=== PATIENT | female | born 1945 | race Caucasian/White ===

== ENCOUNTER 2022-03-31 10:24 | Outpatient (CLI) | payer MEDICARE, SELFPAY ==
[2022-03-31 10:38] VITALS: BP 102/46; PULSE 80; RESP 20; TEMP 36.7; O2SAT 98
[2022-03-31] MEDS: Dexamethasone Sod. Phos./Pres-Free 10 MG/ML VIAL IJ (11:15)
[2022-03-31] MEDS: Omnipaque 240 MG/ML 50 ML BTL IJ (11:15)
--- NOTE | 2022-03-31 11:15 | DI.RAD_ITS ---
Exam(s) XR PAIN CLINIC CERVICAL SP 2V EXAM: XR PAIN CLINIC CERVICAL SP 2V CLINICAL HISTORY: Dx: Cervical Radiculopathy TECHNIQUE: 2D and realtime digital imaging was performed. COMPARISON: No exams were available for comparison FINDINGS: C-arm fluoroscopy was utilized by Dr. Nguyen during reported cervical epidural steroid injection. Hard copy shows needle placement at what appears to be the C7-T1 level. IMPRESSION: RADIATION DOSE DELIVERED: jaime Salmeron=2.56 mGy
[2022-03-31 11:16] VITALS: BP 128/66; PULSE 62; RESP 17; O2SAT 98
--- NOTE | 2022-03-31 11:53 | PDOC.PAIN ---
Date of service: 03/31/22 Time of Service: 11:55 Pain Clinic Procedure Note Procedure Note Procedure Note: Cervical Epidural Steroid Injection Melissa Sargent has been referred to the [facility] for interlaminar cervical epidural steroid injection. COMMENTS: She was previously evaluated in our office. Pre-procedure pain VAS was 7/10. Dx: Cervical radiculopathy Patient was interviewed and the medical record reviewed. There were no medical, pharmacologic, radiographic or other structural contraindications to attempting fluoroscopically guided epidural steroid injection. Risks and expected side effects as well as potential benefit of the procedure were reviewed and voiced concerns addressed. The printed consent form was signed and witnessed. Standard time-out procedure was performed. The patient was placed in the prone position on the fluoroscopy table and automated blood pressure cuff and pulse oximeter applied. The skin entry point for entering the epidural space by a midline C7-T1 interlaminar approach was identified under fluoroscopy and marked. Following thorough Chlorhexadine preparation of the skin and draping and 1% lidocaine infiltration of the skin entry point and subcutaneous tissues, an 18 gauge Tuohy needle was placed under fluoroscopic guidance and with loss of resistance technique into the epidural space. Upon needle placement and loss of resistance there were no paresthesiae or return of blood or CSF through the needle. 1ml of Omnipaque 240 were injected with clear epidural spread in the A/P, oblique views. 15mg of preservative-free Dexamethasone with 1ml sterile normal saline were injected through the needle with no unusual discomfort expressed. The needle was removed without difficulty. A bandage was placed. Vital signs were stable throughout the procedure and were as recorded in the docflowsheet by the nursing staff. If given, dosages of intravenous drugs for anxiolysis and analgesia were documented in MAR. Follow up plans and appointments were discussed. Post procedure instruction was given as documented in nursing documentation and having met discharge criteria and was discharged from the [facility]. This procedure can be completed up to 3 times per 12 months if it is helpful. COMMENTS: Post-procedure pain VAS was 5/10 Matt Nguyen DO, MPH [facility] Management [facility] CC: ALYSSA TRAN
== END 2022-03-31 10:25 | disposition home or self-care (01) ==
LOC: PC 10:25
PROVIDERS: PCP Family Medicine; Visit Provider Preventive Medicine Occupational Medicine
DX: M54.12 Radiculopathy, cervical region (principal)
CPT/HCPCS: 62321; 72040; Q9967

== ENCOUNTER 2023-04-05 07:41 | Outpatient (CLI) | payer MEDICARE, SELFPAY ==
[2023-04-05 07:53] VITALS: BP 134/85; PULSE 82; RESP 20; TEMP 36.7; O2SAT 93
--- NOTE | 2023-04-05 08:26 | DI.RAD_ITS ---
Exam(s) XR PAIN CLINIC CERVICAL SP 2V EXAM: XR PAIN CLINIC CERVICAL SP 2V CLINICAL HISTORY: Dx: Cervical Radiculopathy TECHNIQUE: 2D and realtime digital imaging was performed. Radiologist not present. CONTRAST MATERIAL: None. COMPARISON: No exams were available for comparison FINDINGS: Fluoroscopy was provided for pain management therapy. Please refer to procedure report or details. Radiation Exposure Index: Ka,r=3.82 mGy IMPRESSION: As above. RADIATION DOSE DELIVERED:
[2023-04-05 08:31] VITALS: BP 137/75; PULSE 77; RESP 17; O2SAT 98
[2023-04-05] MEDS: Omnipaque 240 MG/ML 50 ML BTL IJ (08:32)
[2023-04-05] MEDS: Dexamethasone Sod. Phos./Pres-Free 10 MG/ML VIAL IJ (08:32)
--- NOTE | 2023-04-05 08:33 | PDOC.PAIN_ITS ---
Date of service: 04/05/23 Time of Service: 08:33 Pain Managment Procedure Note Procedure Note Procedure Note: Procedure Note Cervical Interlaminar Epidural Steroid Injection Date of Service: April 05, 2023 Patient:? Melissa Sargent? Provider:? Augusto Nguyen DO, MPH Melissa has been referred to the [facility] for cervical epidural steroid injection.? Pre-operative diagnosis: Cervical Radiculopathy Post-operative diagnosis: Same Pre-procedure pain: VAS= 8/10 Comments: She last had this procedure on 03/31/2022 and had >6 months of >50% pain relief and functional improvement. Melissa was interviewed and the medical record was reviewed.? There were no medical, pharmacologic, radiographic or other structural contraindications to attempting fluoroscopically guided cervical interlaminar epidural steroid injection.? Risks, potential side effects, indications, and potential benefits of the procedure were reviewed with Melissa.? Questions and concerns were addressed.? After it was clear that the patient was fully informed about the procedure, the printed consent form was signed by the patient and myself.? Melissa was placed in the prone position on the fluoroscopy table and automated blood pressure cuff as well as pulse oximeter was applied. A standard time-out procedure was performed. The skin entry point for entering the epidural space by a midline C7-T1 interlaminar approach was identified under fluoroscopy and marked.? The skin entry point was thoroughly cleaned with Chlorhexadine preparation and the skin was draped.? Next a mixture of 2 mls of 1% lidocaine was infiltrated into the area of the planned skin entry point and underlying subcutaneous tissues.? Next an 18 gauge Tuohy needle was placed under fluoroscopic guidance and with loss of resistance technique into the epidural space utilizing multiple AP and 55 degree contralateral fluoroscopic views.? Upon correct needle placement and loss of resistance, there were no paresthesia or return of blood or CSF through the needle. Next 1 mls of preservative-free Omnipaque 240 was injected with clear epidural spread in the A/P and oblique vi ews. Next, a solution of 15 mg of preservative-free Dexamethasone was injected. This was followed with 1ml of preservative-free normal saline. No unusual discomfort was expressed by Melissa. The needle was withdrawn without difficulty. (49 mls of Omnipaque and 5 mg of Dexamethasone was wasted) Melissa was observed and was without hemodynamic, neurologic, or allergic reactions.? Fluoroscopic images were digitally archived. Melissa's vital signs were stable throughout the procedure and were as recorded in the doc flowsheet by the nursing staff.? If given, dosages of intravenous drugs for anxiolysis and analgesia were documented in MAR. Follow up plans and appointments were discussed with Melissa.? Post procedure instruction was given as documented in nursing documentation and having met d ischarge criteria, Melissa [facility] the [facility]. A retrospective review of interlaminar cervical ESIs found that approximately two-thirds of patients with symptomatic cervical radiculopathy from disc herniation were able to avoid surgery for up to 1 year with treatment. Success rate was improved with earlier injection (< 100 days from diagnosis). Lexie EL, Cherie V, Wagner L, Burke AN, Anderson ELIZONDO. Cervical epidural steroid injections for symptomatic disc herniations. J Spinal Disord Tech. 2006 August;19(3):183-6. ? COMMENTS: No apparent complications. Post-procedure pain: VAS= 5/10. Melissa to contact [place] [facility] as needed. If at least 50% improvement in pain and/or function for at least 3 months is achieved, this procedure can be repeated. I personally completed the entire procedure. AUGUSTO NGUYEN DO, MPH ABPMR-subspecialty board certification in Pain Medicine [facility] [facility]
== END 2023-04-05 07:42 | disposition home or self-care (01) ==
PROVIDERS: PCP Family Medicine; Visit Provider Preventive Medicine Occupational Medicine
DX: M54.2 Cervicalgia (principal); M54.12 Radiculopathy, cervical region
CPT/HCPCS: 00123; 62321; 72040; Q9967